=== PATIENT | female | born 1985 | race Caucasian/White ===

== ENCOUNTER 2022-11-07 17:14 | Emergency (ER) | payer MEDICAID ==
[~2022-11-07] VITALS: Ht 162.6 cm; Wt 79.8 kg
[2022-11-07 17:24] VITALS: BP 139/92; PULSE 81; RESP 17; TEMP 97.9; O2SAT 98
[2022-11-07] MEDS ORDERED: PROM118S5 PO (18:48)
[2022-11-07] MEDS ORDERED: IBUP-2213 PO (18:48)
[2022-11-07] MEDS ORDERED: LIDO15SO4 PO (18:48)
[2022-11-07] MEDS ORDERED: SUD30 PO (18:48)
[2022-11-07 19:10] VITALS: BP 139/92; PULSE 81; RESP 17; TEMP 97.9; O2SAT 99
[2022-11-07 19:32] LABS: FLU A ANTIGEN negative (NEGATIVE); FLU B ANTIGEN NEGATIVE (NEGATIVE)
== END 2022-11-07 19:10 | disposition home or self-care (01) ==
LOC: MED 17:14
DX: J06.9 Acute upper respiratory infection, unspecified (principal); Z20.822 Contact with and (suspected) exposure to COVID-19
CPT/HCPCS: 99283

== ENCOUNTER 2022-12-31 11:28 | Emergency (ER) | payer MEDICAID ==
[~2022-12-31] VITALS: Ht 165.1 cm; Wt 70.8 kg
[~2022-12-31 11:28] MED LIST: IBUP-2213 PO; LIDO15SO4 PO; PROM118S5 PO; SUD30 PO
[2022-12-31 11:34] VITALS: BP 132/91; PULSE 59; RESP 20; TEMP 98.3; O2SAT 100
[2022-12-31 12:49] VITALS: RESP 20; TEMP 98.4; O2SAT 100
[2022-12-31 12:58] LABS: BASOPHILS # (AUTO) 0.1 K/uL (0.00-0.22); BASOPHILS % (AUTO) 0.5 % (0.0-2.0); EOSINOPHILS # (AUTO) 0.3 K/uL (0-0.4); EOSINOPHILS % (AUTO) 2.7 % (0.0-4.0); HEMATOCRIT 35.8 % (36-48); LYMPHOCYTES # (AUTO) 2.9 K/uL (2.5-16.5); LYMPHOCYTES % (AUTO) 29.6 % (20.5-51.1); MEAN CORPUSCULAR HEMOGLOBIN 28 pg (27-31); MEAN CORPUSCULAR HGB CONC 34 g/dL (33-37); MEAN CORPUSCULAR VOLUME 82.8 fL (80-94); MONOCYTES # (AUTO) 0.7 K/uL (0.8-1.0); MONOCYTES % (AUTO) 6.7 % (1.7-9.3); NEUTROPHILS % (AUTO) 60.5 % (42.2-75.2); PLATELET COUNT (AUTO) 207 K/uL (140-450); RED BLOOD CELL COUNT(AUTO) 4.32 MIL/uL (4.20-5.40); RED CELL DISTRIBUTION WIDTH 14.5 % (11.6-13.7); WHITE BLOOD COUNT (AUTO) 9.9 K/uL (4.8-10.8)
[2022-12-31 13:20] LABS: ALANINE AMINOTRANSFERASE 31 U/L (12-78); ALBUMIN 3.3 g/dL (3.4-5.0); ALKALINE PHOSPHATASE 51 U/L (50-136); ANION GAP 10.2 (8-16); ASPARTATE AMINOTRANSFERASE 19 U/L (15-37); CALCIUM 8.6 mg/dL (8.5-10.1); CARBON DIOXIDE 30.3 mmol/L (21-32); CHLORIDE 105 mmol/L (98-107); CREATININE 0.9 mg/dL (0.6-1.3); GFR ARICAN-AMERICAN 90 mL/min (>90); GFR NON ARICAN-AMERICAN 74 mL/min (>90); GLUCOSE 84 mg/dL (74-106); POTASSIUM 3.5 mmol/L (3.5-5.1); SODIUM SERUM 142 mmol/L (136-145); TOTAL BILIRUBIN 0.4 mg/dL (0.0-1.0); TOTAL PROTEIN, SERUM 7.1 g/dL (6.4-8.2); UREA NITROGEN, BLOOD 6 mg/dL (7-18)
[2022-12-31] MEDS ORDERED: ALBU0.0912 INH (13:59)
[2022-12-31] MEDS ORDERED: IBUP-2213 PO (13:59)
[2022-12-31] MEDS ORDERED: BENZ200C4 PO (13:59)
[2022-12-31] MEDS ORDERED: KETOROLAC 30 MG/ML VIAL IM ONE (14:20)
[2022-12-31 14:34] VITALS: BP 132/71; PULSE 79
== END 2022-12-31 14:36 | disposition home or self-care (01) ==
LOC: MED 11:28
DX: J06.9 Acute upper respiratory infection, unspecified (principal); J40 Bronchitis, not specified as acute or chronic; Z79.899 Other long term (current) drug therapy; Z79.1 Long term (current) use of non-steroidal anti-inflammatories (NSAID)
CPT/HCPCS: 36415; 71045; 80053; 84484; 85025; 85379; 96372; 99284; J1885; Q0092